=== PATIENT | male | born 1960 | race African-American/Black ===

== ENCOUNTER 2021-03-09 02:32 | Emergency (ER) | payer BC, MEDICAID ==
[~2021-03-09] VITALS: Ht 182.9 cm; Wt 82.0 kg
[2021-03-09] MEDS ORDERED: KETOROLAC 30MG/ML VIAL IV STA (03:26)
[2021-03-09] MEDS ORDERED: ONDANSETRON 4MG ODT PO STA (03:26)
[2021-03-09] MEDS ORDERED: SODIUM CHLORIDE 0.9% 1,000 ML IV ONE (03:30)
[2021-03-09 03:41] LABS: BASOPHILS % 0.2 % (0.0-2.0); EOSINOPHILS % 0.1 % (0.0-5.0); HEMATOCRIT. 25.8 % (42.0-52.0); HEMOGLOBIN. 8.7 g/dL (14.0-18.0); LYMPHOCYTES % 17.8 % (20.0-50.0); MEAN CORPUSCULAR HEMOGLOBIN 31.1 pg (28.0-32.0); MEAN CORPUSCULAR VOLUME 91.9 fL (80.0-94.0); MEAN PLATELET VOLUME 7.1 fl (7.4-10.4); MONOCYTES % 7.9 % (2.0-8.0); PLATELET 517 x1000/uL (130-400); RED CELL DISTRIBUTION WIDTH 14.6 % (11.6-14.6)
[2021-03-09 03:49] LABS: CHLORIDE 102 mEq/L (98-107)
[2021-03-09 03:53] LABS: ETHANOL BLOOD < 10 mg/dL
[2021-03-09 06:08] LABS: CLARITY URINE CLOUDY (CLEAR); COLOR URINE DARK YELLOW (YELLOW); KETONES URINE 3+ (NEGATIVE); LEUKOCYTE ESTERASE URINE NEGATIVE (NEGATIVE); NITRITE URINE NEGATIVE (NEGATIVE); OCCULT BLOOD URINE NEGATIVE (NEGATIVE); PH URINE 5.5 (4.5-8.0); PROTEIN URINE 2+ (NEGATIVE); SPECIFIC GRAVITY URINE 1.039 (1.005-1.030)
[2021-03-09] MEDS ORDERED: ACET-2708 PO (06:35)
[2021-03-09 06:45] LABS: *AMPHETAMINES SCREEN URINE NEGATIVE (NEGATIVE); *BARBITURATES SCREEN URINE NEGATIVE (NEGATIVE); *BENZODIAZEPINES SCREEN URINE NEGATIVE (NEGATIVE); CANNABINOID URINE SCREEN PRESUMTIVE POSITIVE (NEGATIVE); OPIATES URINE SCREEN NEGATIVE (NEGATIVE); PHENCYCLIDINE URINE SCREEN NEGATIVE (NEGATIVE)
[2021-03-09 06:46] LABS: *COCAINE SCREEN URINE NEGATIVE (NEGATIVE); METHADONE URINE SCREEN NEGATIVE (NEGATIVE)
[2021-03-09 10:01] VITALS: BP 135/65
== END 2021-03-09 10:00 | disposition home or self-care (01) ==
LOC: ER 02:32
DX: M79.18 Myalgia, other site (principal); D64.9 Anemia, unspecified; R53.81 Other malaise; Z59.48 Other specified lack of adequate food; Z59.00 Homelessness unspecified; I10 Essential (primary) hypertension; E11.9 Type 2 diabetes mellitus without complications
CPT/HCPCS: 36415; 71045; 80053; 80305; 80320; 81003; 83690; 85025; 93005; 96361; 96374; 99285; J1885; J7030; Q0162; G0480